=== PATIENT | female | born 1985 | race Caucasian/White ===

== ENCOUNTER 2017-11-21 12:09 | Emergency (ER) | payer OTHER ==
[~2017-11-21] VITALS: Ht 160 cm; Wt 63.6 kg
[2017-11-21 12:14] VITALS: BP 132/100; PULSE 84; TEMP 97.8
[2017-11-21] MEDS ORDERED: NATURAL IRON65 MG PO (12:50)
== END 2017-11-21 12:52 | disposition home or self-care (01) ==
LOC: COL.ER 12:09
DX: T78.1XXA Other adverse food reactions, not elsewhere classified, initial encounter (principal); F41.9 Anxiety disorder, unspecified